=== PATIENT | female | born 1940 | race Caucasian/White ===

== ENCOUNTER 2019-12-03 13:26 | Emergency (ER) | payer MEDICARE, OTHER ==
--- NOTE | 2019-12-03 13:44 | EDM.PDOC ---
ED HPI GENERAL MEDICAL PROBLEM - General Chief Complaint: General Stated Complaint: left arm pain, headache, nausea Time Seen by Provider: 12/03/19 13:26 Source of Information: Reports: Patient - History of Present Illness INITIAL COMMENTS - FREE TEXT/NARRATIVE: Patient comes into the emergency department with complaints of headache, nausea , and left arm pain post fall. Patient was transported here via [place] ambulance. Patient presented to the emergency department around 11 AM in [place] with the above complaints. The provider on sited stated they do not have imaging other than x-ray and he requested further transportation evaluation. Patient did not have any xrays or labs completed prior to leaving their facility. Patient states that she was walking down her steps at home and misstepped falling a total of 4 steps landing on her left side. She states that she hit her head, left arm and left knee. She states she did not lose consciousness. The patient describes the discomfort as a throbbing sensation and is nauseated. Patient denies any range of motion or CMS concerns. but does hurt to move her arm and left knee. 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 Onset: Sudden Location: Reports: Head, Upper Extremity, Left Quality: Reports: Throbbing Severity: Moderate Improves with: Reports: Immobilization Associated Symptoms: Reports: No Other Symptoms - Related Data Allergies Allergy/AdvReac Type Severity Reaction Status Date / Time ciprofloxacin Allergy Nausea and Verified 12/03/19 13:47 Vomiting codeine Allergy Nausea and Verified 12/03/19 13:47 Vomiting lisinopril Allergy Cough Verified 12/03/19 13:47 Crsaakv-Upe-[id number] Reductase Allergy Other Verified 12/03/19 13:47 Inhibitor Sulfa (Sulfonamide Allergy Other Verified 12/03/19 13:47 Antibiotics) Home Meds: Home Meds Acetaminophen 650 mg PO Q6H PRN 06/28/19 [History] Aspirin [Adult Low Dose Aspirin EC] 81 mg PO DAILY 06/28/19 [History] Benzocaine/Menthol [Cepacol Sore Throat Lozenge] 1 each MM Q4H PRN 06/28/19 [ History] Cyanocobalamin (Vitamin B-12) [B-12] 1,000 mcg PO DAILY 06/28/19 [History] Donepezil HCl 5 mg PO BEDTIME 06/28/19 [History] Furosemide 20 mg PO DAILY 06/28/19 [History] Losartan Potassium 100 mg PO DAILY 06/28/19 [History] Mirtazapine 7.5 mg PO BEDTIME 06/28/19 [History] Omeprazole Magnesium [Prilosec Otc] 20 mg PO DAILY 06/28/19 [History] Venlafaxine [Effexor XR] 150 mg PO DAILY 06/28/19 [History] amLODIPine [Norvasc] 2.5 mg PO DAILY 06/28/19 [History] bisacodyL [Dulcolax] 5 mg PO BID PRN 06/28/19 [History] carvediloL [Carvedilol] 3.125 mg PO BIDMEALS 06/28/19 [History] Calcium Carbonate/Vitamin D3 [Calcium 600 + Vit D 200] 1 each PO DAILY 12/03/19 [History] Cranberry Conc/Ascorbic Acid [Cranberry 6,000 mg Softgel] 1 each PO DAILY [History] Docusate Sodium [Colace] 100 mg PO DAILY 12/03/19 [History] Past Medical History HEENT History: Reports: Impaired Vision Cardiovascular History: Reports: High Cholesterol, Hypertension Gastrointestinal History: Reports: GERD Genitourinary History: Reports: UTI, Recurrent Other Genitourinary History: urinary urgency Musculoskeletal History: Reports: Fracture, Other (See Below) Other Musculoskeletal History: osteopenia Neurological History: Reports: Other (See Below) Other Neuro History: mild cognitive impairment Psychiatric History: Reports: Depression Hematologic History: Reports: B12 Deficiency Oncologic (Cancer) History: Reports: Breast - Past Surgical History HEENT Surgical History: Reports: Tonsillectomy Cardiovascular Surgical History: Reports: None GI Surgical History: Reports: Appendectomy Female Surgical History: Reports: Mastectomy Other Female Surgeries/Procedures: breast lumpectomy. core needle biopsy Neurological Surgical History: Reports: None Other Musculoskeletal Surgeries/Procedures:: right hip prosthesis-right juan j hip arthroplasty Social & Family History - Family History Neurological: Reports: CVA Other Neurological Family History: brother Endocrine/Metabolic: Reports: Diabetes, type II Other Endocrine/Metabolic Family History: father Oncologic: Reports: Brain Other Oncologic Family History: brother - Caffeine Use Caffeine Use: Reports: Coffee - Living Situation & Occupation Living situation: Reports: (3 children, 2 boys, one girl), with Spouse Occupation: Retired (Retired farm housewife.) ED ROS GENERAL - Review of Systems Review Of Systems: Comprehensive ROS is negative, except as noted in HPI. Constitutional: Reports: No Symptoms HEENT: Reports: No Symptoms Respiratory: Reports: No Symptoms Cardiovascular: Reports: No Symptoms Endocrine: Reports: No Symptoms GI/Abdominal: Reports: No Symptoms : Reports: No Symptoms Skin: Reports: No Symptoms Neurological: Reports: No Symptoms Psychiatric: Reports: No Symptoms Hematologic/Lymphatic: Reports: No Symptoms Immunologic: Reports: No Symptoms ED EXAM, GENERAL - Physical Exam Exam: See Below Exam Limited By: No Limitations General Appearance: Alert, WD/WN, No Apparent Distress Eye Exam: Left Eye: Abnormal Pupil (size 2- not responsive ) Ears: Normal External Exam, Normal Canal, Hearing Grossly Normal, Normal TMs Ear Exam: Bilateral Ear: Auricle Normal, Canal Normal, TM normal Nose: Other (dried blood ) Throat/Mouth: Normal Inspection, Normal Lips, Normal Teeth Head: Other (tenderness upon palpation left temporal area ) Neck: Normal Inspection, Supple, Non-Tender, Full Range of Motion Respiratory/Chest: No Respiratory Distress, Lungs Clear, Normal Breath Sounds, No Accessory Muscle Use, Other (left side chest tenderness upon palapation. Pain noted with movement and deep breath) Cardiovascular: Normal Peripheral Pulses, Regular Rate, Rhythm, No Edema Peripheral Pulses: 4+: Radial (L), Radial (R), Dorsalis Pedis (L), Dorsalis Pedis (R) GI/Abdominal: Normal Bowel Sounds, Soft, Non-Tender, No Distention Extremities: Normal Inspection, Normal Range of Motion, Non-Tender, No Pedal Edema, Normal Capillary Refill Neurological: Alert, Oriented, Other (tired appearance ) Psychiatric: Normal Affect, Normal Mood Skin Exam: Warm, Dry, Normal Color, Other (abrasion- left knee, ecchymosis left elbow and left shoulder hematoma left temporal region) Course - Vital Signs Last Recorded V/S: Last Vital Signs Temp 37.2 C 12/03/19 13:35 Pulse 71 12/03/19 14:46 Resp 16 12/03/19 14:46 BP 156/89 H 12/03/19 14:46 Pulse Ox 97 12/03/19 14:46 - Orders/Labs/Meds Orders: Active Orders 24 hr Category Date Time Status EKG Documentation Completion [RC] STAT Care 12/03/19 13:50 Active Chest 1V Frontal [CR] Stat Exams 12/03/19 14:34 Ordered Labs: Laboratory Tests 12/03/19 12/03/19 12/03/19 Range/Units 13:40 13:52 13:52 WBC 5.7 (4.0-10.0) x10^3/uL RBC 4.06 (4.00-5.50) x10^6/uL Hgb 12.2 (12.0-16.0) g/dL Hct 35.8 (33.0-47.0) % MCV 88.2 (78.0-93.0) fL MCH 30.0 (26.0-32.0) pg MCHC 34.1 (32.0-36.0) g/dL RDW Coeff of Pedro 13.0 (10.0-15.0) % Plt Count 196 (130-400) x10^3/uL Neut % (Auto) 81.3 H (50.0-80.0) % Lymph % (Auto) 12.7 L (25.0-50.0) % [place] % (Auto) 5.6 (2.0-11.0) % Eos % (Auto) 0.2 (0.0-4.0) % Baso % (Auto) 0.2 (0.2-1.2) % PT 10.6 (10.0-12.8) SEC INR 0.9 L (2.0-3.5) Sodium (136-145) mmol/L Potassium (3.5-5.1) mmol/L Chloride (98-107) mmol/L Carbon Dioxide (21-32) mmol/L Anion Gap (10-20) mmol/L BUN (7-18) mg/dL Creatinine (0.55-1.02) mg/dL Est Cr Clr Drug Dosing Estimated GFR (MDRD) Glucose (74-106) mg/dL Calcium (8.5-10.1) mg/dL Corrected Calcium (8.5-10.1) mg/dL Total Bilirubin (0.2-1.0) mg/dL AST (15-37) U/L ALT (14-59) U/L Alkaline Phosphatase (46-116) U/L Total Protein (6.4-8.2) g/dL Albumin (3.4-5.0) g/dL Globulin Albumin/Globulin Ratio Urine Color Light yellow (YELLOW) Urine Appearance Clear (CLEAR) Urine pH 8.5 H (5.0-8.0) Ur Specific [place] 1.020 Urine Protein Negative (NEGATIVE) mg/dL Urine Glucose (UA) Negative (NEGATIVE) mg/dL Urine Ketones Negative (NEGATIVE) mg/dL Urine Occult Blood Trace-intact H (NEGATIVE) Urine Nitrite Negative (NEGATIVE) Urine Bilirubin Negative (NEGATIVE) Urine Urobilinogen 0.2 (0.2) EU/dL Ur Leukocyte Esterase Negative (NEGATIVE) Urine RBC 5-10 H (NOT SEEN) /HPF Urine WBC Not seen (NOT SEEN) /HPF Ur Squamous Epith Cells Rare (NEGATIVE) /HPF Urine Bacteria Not seen (NEGATIVE) /HPF Urine Mucus Occasional H (NEGATIVE) /LPF 12/03/19 Range/Units 13:52 WBC (4.0-10.0) x10^3/uL RBC (4.00-5.50) x10^6/uL Hgb (12.0-16.0) g/dL Hct (33.0-47.0) % MCV (78.0-93.0) fL MCH (26.0-32.0) pg MCHC (32.0-36.0) g/dL RDW Coeff of Pedro (10.0-15.0) % Plt Count (130-400) x10^3/uL Neut % (Auto) (50.0-80.0) % Lymph % (Auto) (25.0-50.0) % [place] % (Auto) (2.0-11.0) % Eos % (Auto) (0.0-4.0) % Baso % (Auto) (0.2-1.2) % PT (10.0-12.8) SEC INR (2.0-3.5) Sodium 138 (136-145) mmol/L Potassium 3.3 L (3.5-5.1) mmol/L Chloride 98 (98-107) mmol/L Carbon Dioxide 28 (21-32) mmol/L Anion Gap 15.3 (10-20) mmol/L BUN 12 (7-18) mg/dL Creatinine 0.7 (0.55-1.02) mg/dL Est Cr Clr Drug Dosing TNP Estimated GFR (MDRD) > 60 Glucose 124 H (74-106) mg/dL Calcium 9.2 (8.5-10.1) mg/dL Corrected Calcium 9.76 (8.5-10.1) mg/dL Total Bilirubin 0.5 (0.2-1.0) mg/dL AST 35 (15-37) U/L ALT 36 (14-59) U/L Alkaline Phosphatase 154 H (46-116) U/L Total Protein 7.6 (6.4-8.2) g/dL Albumin 3.3 L (3.4-5.0) g/dL Globulin 4.3 Albumin/Globulin Ratio 0.77 Urine Color (YELLOW) Urine Appearance (CLEAR) Urine pH (5.0-8.0) Ur Specific [place] Urine Protein (NEGATIVE) mg/dL Urine Glucose (UA) (NEGATIVE) mg/dL Urine Ketones (NEGATIVE) mg/dL Urine Occult Blood (NEGATIVE) Urine Nitrite (NEGATIVE) Urine Bilirubin (NEGATIVE) Urine Urobilinogen (0.2) EU/dL Ur Leukocyte Esterase (NEGATIVE) Urine RBC (NOT SEEN) /HPF Urine WBC (NOT SEEN) /HPF Ur Squamous Epith Cells (NEGATIVE) /HPF Urine Bacteria (NEGATIVE) /HPF Urine Mucus (NEGATIVE) /LPF Meds: Medications Discontinued Medications Generic Name Dose Route Start Last Admin Trade Name Freq PRN Reason Stop Dose Admin Fentanyl 25 mcg 12/03/19 14:31 Sublimaze IVPUSH 12/03/19 14:32 ONETIME ONE Departure - Departure Time of Disposition: 15:20 Disposition: Against Medical Advice 07 Condition: Fair Clinical Impression: Nausea, Effusion, left knee Fall Qualifiers: Encounter type: initial encounter Qualified Code(s): W19.XXXA - Unspecified fall, initial encounter Headache Qualifiers: Headache type: unspecified Headache chronicity pattern: acute headache Intractability: not intractable Qualified Code(s): R51 - Headache Contusion of left shoulder Qualifiers: Encounter type: initial encounter Qualified Code(s): S40.012A - Contusion of left shoulder, initial encounter - Discharge Information *PRESCRIPTION DRUG MONITORING PROGRAM REVIEWED*: Not Applicable *COPY OF PRESCRIPTION DRUG MONITORING REPORT IN PATIENT DOT: Not Applicable Instructions: Knee Effusion, [id number], Contusion, [id number] Referrals: Mary Alice Hernandez DO [Primary Care Provider] - Forms: ED Department Discharge, Refusal of Care AMA Additional Instructions: 1. rest 2. increase your water intake 3. ensure safe walking and handrails use while at home 4. Can Tylenol and ibuprofen as needed for pain and discomfort 5. Follow-up or return to the emergency room is symptoms progress or worsen 6. Call with any questions or concerns Sepsis Event Note - Focused Exam Vital Signs: Vital Signs Temp Pulse Resp BP Pulse Ox 12/03/19 14:46 71 16 156/89 H 97 12/03/19 13:35 37.2 C 72 16 171/99 H 97 Date Exam was Performed: 12/03/19 Time Exam was Performed: 14:54 - My Orders Last 24 Hours: My Active Orders 12/03/19 13:50 EKG Documentation Completion [RC] STAT 12/03/19 14:34 Chest 1V Frontal [CR] Stat - Assessment/Plan Last 24 Hours: My Active Orders 12/03/19 13:50 EKG Documentation Completion [RC] STAT 12/03/19 14:34 Chest 1V Frontal [CR] Stat Assessment:: 1. fall 2. nausea 3. left arm pain 4. left knee pain Plan: 1. Labs completed in the ER. Results reviewed with patient 2. EKG completed in the ER. Results reviewed with patient and family 3. CT of head without contrast completed in the ER. Results reviewed with patient and family 4. X-ray completed of left shoulder and left knee. Results reviewed patient and family 5. Chest xray completed in ER results reviewed with the patient and family 6. Patient was encouraged to be admitted related to fall, nausea, severe headache, and physical therapy referral/treatment regarding pain and discomfort to the left arm and leg. Patient is reluctant to admission family is agreeable to watch over the patient. According to the patient's daughter she is ambulating at her baseline at home. Patient and family are willing to sign AMA forms regarding discharge from the emergency department AGAINST MEDICAL ADVICE. 7. Pt is alert, ambulating with walker-unsteady but able to ambulate, denies and ROM or CMS concerns, dizziness, lightheadedness, confusion, chest pain, shortness of breath, or GI concerns 8. Education regarding safe maneuvering in the home, activity, diet, ambulating , follow-up care, returning or calling 911 if symptoms progress or worsen, and [id number] medication use or any pain and discomfort 9. All questions and concerns addressed with prior to the patient being discharged
[2019-12-03 14:19] LABS: ANION GAP 15.3 mmol/L (10-20); CHLORIDE,CL 98 mmol/L (98-107); SODIUM,NA 138 mmol/L (136-145)
[2019-12-03] MEDS ORDERED: fentaNYL 100 MCG/2 ML SDV IVPUSH ONE (14:31)
--- NOTE | 2019-12-03 14:43 | CR ---
[id number] RAD/RAD Shoulder Left 1V Exam: RAD Shoulder Left 1V Indication:FALL, NAUSEA, TIRED, SEVERE HEADACHE, HEMATOMA. Comparison: No prior imaging for comparison. Discussion: Bones are in normal alignment. No fracture. 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 Diffuse bone demineralization. Impression: No acute findings. Paresh Worthy MD 12/03/19 1454 Thank you for allowing us to participate in the care of your patient.
--- NOTE | 2019-12-03 14:46 | CT ---
[id number] CT/CT Head WO IV EXAM: CT Head WO IV CLINICAL DATA: TRAUMA COMPARISON: CORRELATION IS MADE WITH THE EXAM OF 2015 FINDINGS: There is no mass or mass effect. There is no hemorrhage or hydrocephalus. There are no extra-axial fluid collections. There are no sites of abnormal attenuation. IMPRESSION: NO PLAIN CT EVIDENCE OF ACUTE INTRACRANIAL PROCESS. Jesus Whitaker MD 12/03/19 [id number] Thank you for allowing us to participate in the care of your patient.
--- NOTE | 2019-12-03 14:47 | CR ---
[id number] RAD/RAD Knee Left 1-2V Exam: RAD Knee Left 1-2V Indication:FALL, NAUSEA, TIRED, SEVERE HEADACHE, HEMATOMA. Comparison: No prior imaging for comparison. Discussion: Possible trace knee joint effusion. Bones are normal alignment. No radiographically evident fracture. Tricompartmental osteoarthritis with joint space narrowing. Meniscus chondrocalcinosis. Impression: Possible trace knee joint effusion. No fracture or dislocation. Paresh Worthy MD 12/03/19 0716 Thank you for allowing us to participate in the care of your patient.
--- NOTE | 2019-12-03 15:05 | CR ---
[id number] RAD/RAD Chest PA or AP 1V EXAM: RAD Chest PA or AP 1V INDICATION: FALL, LEFT-SIDED PAIN. COMPARISON: None. DISCUSSION: Apparent widening of the mediastinum is likely secondary to patient positioning. If concern for dissection, CTA of the chest could be considered with contrast for further evaluation. No infiltrate, effusion, pneumothorax, or edema. Pulmonary hyperinflation. Left basilar subsegmental atelectasis. No radiographic evidence of acute fracture. IMPRESSION: As above. Jose Manuel Samuel DO 12/03/19 8821 Thank you for allowing us to participate in the care of your patient.
== END 2019-12-03 15:40 | disposition left against medical advice (07) ==
LOC: VM.ED 13:26
DX: S40.012A Contusion of left shoulder, initial encounter (principal); R51 Headache; M25.412 Effusion, left shoulder; I10 Essential (primary) hypertension; E78.00 Pure hypercholesterolemia, unspecified; K21.9 Gastro-esophageal reflux disease without esophagitis; F32.9 Major depressive disorder, single episode, unspecified; Z88.1 Allergy status to other antibiotic agents; Z88.5 Allergy status to narcotic agent; Z88.8 Allergy status to other drugs, medicaments and biological substances; Z88.2 Allergy status to sulfonamides; Z79.82 Long term (current) use of aspirin; Z79.899 Other long term (current) drug therapy; W10.8XXA Fall (on) (from) other stairs and steps, initial encounter
CPT/HCPCS: 36415; 70450; 71045; 73020-LT; 73560-LT; 80053; 81001; 85025; 85610; 93005; 99284-GF; 99285-25